=== PATIENT | female | born 1990 | race Caucasian/White ===

== ENCOUNTER 2020-11-12 12:57 | Emergency (ER) | payer OTHER ==
[~2020-11-12] VITALS: Ht 154.9 cm; Wt 65.3 kg
[2020-11-12 13:04] VITALS: BP 148/71
--- NOTE | 2020-11-12 13:12 | NUR ---
Pt ambulated to bed 12.
--- NOTE | 2020-11-12 13:15 | NUR ---
30 y/o F BIB self from home c/o bilateral flank pain R>L. Patient seen at Urgent Care 11/10 and referred here. Reports 5/10, sharp/intermittent, non-radiating. States chills, dysuria, urgency/frequency, nausea. Pt reports similar symptoms in past with UTI and kidney stones. Denies vomiting, diarrhea, constipation, SOB, chest pain. LMP: 10/22; last BM; yesterday normal. Ibuprofen 600mg yesterday with relief. Bed locked in lowest position, side rails x 1. PMH:GESTATIONAL HTN, KIDNEY STONES NKDA
[2020-11-12] MEDS ORDERED: ONDA8TAB87 PO (15:41)
[2020-11-12] MEDS ORDERED: CIPR500T4 PO (15:41)
[2020-11-12] MEDS ORDERED: IBUP-2213 PO (15:41)
[2020-11-12 16:05] VITALS: BP 137/74
--- NOTE | 2020-11-12 16:37 | NUR ---
Patient discharged with v/s stable. Written and verbal after care instructions given and explained. Patient alert, oriented and verbalized understanding of instructions. Ambulatory with steady gait. All questions addressed prior to discharge. ID band removed. Patient advised to follow up with PMD. Rx of Cipro, Ibuprofen, Zofran given. Patient educated on indication of medication including possible reaction and side effects. Opportunity to ask questions provided and answered.
== END 2020-11-12 16:37 | disposition home or self-care (01) ==
LOC: MED 12:57
DX: N39.0 Urinary tract infection, site not specified (principal); R11.2 Nausea with vomiting, unspecified; Z87.442 Personal history of urinary calculi; Z88.5 Allergy status to narcotic agent
CPT/HCPCS: 81002; 81025; 99283

== ENCOUNTER 2021-12-04 19:08 | Emergency (ER) | payer OTHER ==
[~2021-12-04] VITALS: Ht 154.9 cm; Wt 74.8 kg
[~2021-12-04 19:08] MED LIST: CIPR500T4 PO; IBUP-2213 PO; ONDA8TAB87 PO
[2021-12-04 19:15] VITALS: BP 122/65
--- NOTE | 2021-12-04 19:21 | NUR ---
Patient ambulated to bed 8.
--- NOTE | 2021-12-04 19:27 | NUR ---
Report given to DESTIN Saldaña for transfer of care.
[2021-12-04] MEDS ORDERED: KETOROLAC 30 MG/ML VIAL IM ONE (19:50)
[2021-12-04] MEDS ORDERED: IBUP-2213 PO (20:47)
[2021-12-04] MEDS ORDERED: CYCL-711 PO (20:47)
[2021-12-04] MEDS ORDERED: LID5T TP (20:47)
[2021-12-04 21:04] VITALS: BP 117/72
== END 2021-12-04 21:05 | disposition home or self-care (01) ==
LOC: MED 19:08
DX: S39.012A Strain of muscle, fascia and tendon of lower back, initial encounter (principal); Z79.899 Other long term (current) drug therapy; Z88.5 Allergy status to narcotic agent; X58.XXXA Exposure to other specified factors, initial encounter; Y93.89 Activity, other specified; Y92.89 Other specified places as the place of occurrence of the external cause; Y99.8 Other external cause status
CPT/HCPCS: 81002; 81025; 96372; 99283; J1885